=== PATIENT | female | born 1995 | race Caucasian/White ===

== ENCOUNTER 2024-02-20 10:31 | Emergency (ER) | payer OTHER, SELFPAY ==
[2024-02-20 10:42] VITALS: BP 112/71
--- NOTE | 2024-02-20 10:58 | ED.GENMED ---
History of Present Illness
General
Chief Complaint: Abdominal Symptoms
Time Seen by Provider: 02/20/24 10:46
Travel History
Have you had any contact with someone who has COVID-19?: No
Do you have any symptoms of coronavirus? Fever > 100 degrees, chills, cough, shortness of breath, sore throat, loss of taste or smell, muscle aches, or headache?: No
History of Present Illness
History of Present Illness:
28-year-old female with history of PCOS presents to the emergency department for evaluation of right lower quadrant/right pelvic pain ongoing for the past 3 days. Associated with nausea no vomiting. Denies any appetite changes. No fevers or
chills. Has a history of multiple ruptured ovarian cyst, states this feels different. Past menstrual cycle was approximate 2 weeks ago
Past History
Past History
ED Past Medical History: Other (ADHD, chronic sinusitis)
ED Past Surgical History: None
Social History
Tobacco: Non-smoker
Alcohol: None
Drug: None
Personal: Single
Living: with family
Employment: Student
Family History
Family History: Other (Noncontributory)
Review of Systems
Review of Systems
Allergies reviewed?: Yes
All Other Systems: ROS reviewed and negative except as documented in HPI and ROS
Phy Exam
Physical Exam
Physical Exam:
GEN: Well appearing, NAD, WDWN
HEENT: Oral mucosa moist, no scleral icterus
Cardiac: Regular rate
Lung: No respiratory distress, no tachypnea
Abdomen: Soft, nontender in all 4 quadrants. There is mild tenderness elicited to the right pelvis
MSK: No gross deformity or injuries
Skin: Good color, no pallor or jaundice, no rashes
Neuro: AO x3, moves all extremities freely
Psych: Calm, cooperative
Course
Orders/Labs/Results
Orders:
Orders
02/20/24 10:56
Iohexol [Omnipaque] See Protocol PO NOW STA
US Abdomen - Appendix Only Urgent
Comment:
Reason For Exam: R pelvic/RLQ pain
US Pelvis W Transvag Combined Urgent
Reason For Exam: R pelvic pain
02/20/24 10:57
Test Result ONCE
02/20/24 11:40
Complete Blood Count/With Diff Urgent
Comprehensive Metabolic Panel Urgent
HCG, Serum Qualitative Screen Urgent
Urinalysis Reflex To Culture Urgent
Date Specimen was Collected: 02/20/24
Time Specimen was Collected: 11:26
Urine Microscopic Urgent
Date Specimen was Collected: 02/20/24
Time Specimen was Collected: 11:26
Urine Culture Urgent
ROSINA Source: U
Specimen Description:
Date Specimen was Collected: 02/20/24
Time Specimen was Collected: 11:26
Abnormal Lab Results
02/20/24
11:40
Absolute Neuts (auto) 8.2 H 10^3/uL
(1.4-6.5)
Absolute Lymphs (auto) 0.5 L 10^3/uL
(1.2-3.4)
Neutrophils % 88.6 H %
(42.2-75.2)
Lymphocytes % 4.9 L %
(20.5-51.1)
Sodium 134 L mmol/L
(135-145)
BUN 23 H mg/dl
(7-17)
Leukocyte Esterase Rfl 1+ A
(Negative)
Urine Bacteria Few A
(Negative)
02/20/24 11:40
02/20/24 11:40
Vital Signs
Initial and Last Documented VS:
Initial Vital Signs
Temp Pulse Resp BP Pulse Ox
98.0 F 79 16 112/71 98
02/20/24 10:42 02/20/24 10:42 02/20/24 10:42 02/20/24 10:42 02/20/24 10:42
Last Documented Vital Signs
Temp Pulse Resp BP Pulse Ox
98.0 F 79 16 112/71 98
02/20/24 10:42 02/20/24 10:42 02/20/24 10:42 02/20/24 10:42 02/20/24 10:42
MDM/Problems Addressed
MDM/Problems Addressed:
Workup reveals a large 6 cm ovarian cyst that is likely somewhat hemorrhagic. No evidence for ovarian torsion. No free fluid or secondary signs of appendicitis. The ovarian cyst is most likely the cause of her symptoms. I strongly recommend she
follow-up for repeat ultrasound in the next 6 to 12 weeks due to the sheer size of the cyst to rule out any occult neoplastic etiology
*Critical Care Note
Total Time (30-74mins, 75-104mins- exclusive of procedures): Not Applicable
ED Attending Note
-
Portions of this chart may have been created with voice recognition software.� Occasional wrong word or��sound alike� substitutions may have occurred due to the inherent limitations of voice recognition software.
Discharge Plan
Departure
Patient Disposition: Home (Routine Discharge)
Date of Disposition: 02/20/24
Time of Disposition: 13:34
Patient with high blood pressure during this ER visit?: No
Discharge Problem:
Cyst of right ovary
Instructions: Ovarian Cyst ED
Prescriptions:
No Action
celecoxib 200 mg capsule
200 mg PO DAILYPRN PRN (Reason: mild pain)
sucralfate [Carafate] 1 gram Tablet
1 g PO TID
tramadol 50 mg tablet
50 mg PO Q6HPRN PRN (Reason: moderate pains)
escitalopram oxalate [Lexapro] 5 mg Tablet
5 mg PO DAILY
cephalexin 500 mg Capsule
500 mg PO QID Qty: 40 0RF
Santyl 250 unit/gram Ointment
1 applic topical DAILY Qty: 30 0RF
Referrals:
Cecile Soto CRNP [Family Provider] -
Activity Restrictions/Additional Instructions:
Get a repeat ultrasound in 6-12 weeks to reassess the cyst due to size
Interventions
Interventions:
*Risk Screen - Suicide Last Done: 02/20/24 11:43
*General Assessment Last Done: 02/20/24 11:43
*Neglect/Abuse Screening Last Done: 02/20/24 11:43
ED- Fall Risk Assessment Last Done: 02/20/24 13:30
*ED COVID-19 Vaccine History Last Done: 02/20/24 10:42
*Nursing Disposition Last Done: 02/20/24 13:30
SE-Jtvawp-Aiwgccbkza Assessment Last Done: 02/20/24 11:43
Discharge Date and Time
Discharge Date/Time: 02/20/24 13:30
Print Language: LATVIAN
[2024-02-20] MEDS: OMNIPAQUE 50 ML PO (11:30)
[2024-02-20 11:58] LABS: % Basophils 0.2 % (0-2); % Eosinophils 0.1 % (0-6); % Immature Granulocytes 0.3 % (0-0.5); % Lymphocytes 4.9 % (20.5-51.1); % Monocytes 5.9 % (1.7-9.3); % Neutrophils 88.6 % (42.2-75.2); Absolute Lymphocytes 0.5 10^3/uL (1.2-3.4); Absolute Monocytes 0.6 10^3/uL (0.1-0.6); Absolute Neutrophils 8.2 10^3/uL (1.4-6.5); Hematocrit 42.4 % (37.0-47.0); Hemoglobin 14.4 g/dL (12.0-16.0); Mean Corpuscular Hgb 29.3 pg (27.0-31.0); Mean Corpuscular Volume 86.2 fL (81.0-99.0); Mean Platelet Volume 8.9 fL (7.4-10.4); Nucleated Red Blood Cells % 0 %; Platelet Count 176 10^3/uL (130-400); Red Blood Cell Count 4.92 10^6/uL (4.20-5.40); Red Cell Dist. Width 12.1 % (11.5-14.5); White Blood Cell Count 9.3 10^3/uL (4.8-10.8)
[2024-02-20 12:06] LABS: HCG, Serum Qualitative Screen Negative; Urine Albumin Negative (Neg - Trace); Urine Bilirubin Negative (Negative); Urine Color Yellow; Urine Glucose Negative (Negative); Urine Ketone Negative (Negative); Urine Leukocyte 1+ (Negative); Urine Nitrite Negative (Negative); Urine Occult Blood Negative (Negative); Urine Urobilinogen Negative (Neg - 1+)
[2024-02-20 12:09] LABS: ALT (SGPT) 28 U/L (0-35); AST (SGOT) 30 U/L (14-36); Albumin 4.5 g/dl (3.5-5.0); Alkaline Phosphatase 63 U/L (38-126); Blood Urea Nitrogen 23 mg/dl (7-17); Calcium 9.4 mg/dl (8.4-10.2); Carbon Dioxide 25 mmol/L (22-30); Chloride 102 mmol/L (98-107); Glucose 77 mg/dl (70-99); Potassium 4.1 mmol/L (3.5-5.1); Sodium 134 mmol/L (135-145); Total Bilirubin 0.5 mg/dl (0.2-1.3); Total Protein 7.4 g/dl (6.3-8.2); eGFR > 60.00
[2024-02-20 13:17] LABS: Urine Character Clear (Clear)
[2024-02-20 13:26] LABS: Urine Bacteria Few (Negative); Urine Red Blood Cell 0-2 /HPF (0-2)
== END 2024-02-20 13:30 | disposition home or self-care (01) ==
LOC: EMR 10:31
PROVIDERS: Physician Assistant; EMERGENCY PHYSICIAN Emergency Medicine; FAMILY PHYSICIAN Nurse Practitioner
DX: N83.201 Unspecified ovarian cyst, right side (principal)
CPT/HCPCS: 99284; 76700; 76705; 76830; 76856; 80053; 81003; 81015; 83690; 84703; 85025; 87086; 96361; 96374; 96375

== ENCOUNTER 2024-02-20 20:26 | Emergency (ER) | payer OTHER, SELFPAY ==
[2024-02-20 20:31] VITALS: BP 106/71
[2024-02-20 20:49] LABS: % Basophils 0.3 % (0-2); % Eosinophils 0.4 % (0-6); % Immature Granulocytes 0.4 % (0-0.5); % Lymphocytes 8.7 % (20.5-51.1); % Monocytes 9.5 % (1.7-9.3); % Neutrophils 80.7 % (42.2-75.2); Absolute Lymphocytes 0.7 10^3/uL (1.2-3.4); Absolute Monocytes 0.8 10^3/uL (0.1-0.6); Absolute Neutrophils 6.4 10^3/uL (1.4-6.5); Hematocrit 46.2 % (37.0-47.0); Hemoglobin 15.8 g/dL (12.0-16.0); Mean Corp Hgb Conc. 34.2 g/dL (33.0-37.0); Mean Corpuscular Hgb 29.2 pg (27.0-31.0); Mean Corpuscular Volume 85.4 fL (81.0-99.0); Mean Platelet Volume 9.1 fL (7.4-10.4); Nucleated Red Blood Cells % 0 %; Platelet Count 166 10^3/uL (130-400); Red Blood Cell Count 5.41 10^6/uL (4.20-5.40); Red Cell Dist. Width 12.2 % (11.5-14.5); White Blood Cell Count 7.9 10^3/uL (4.8-10.8)
[2024-02-20 21:02] LABS: HCG, Serum Qualitative Screen Negative
[2024-02-20 21:06] LABS: ALT (SGPT) 32 U/L (0-35); AST (SGOT) 36 U/L (14-36); Albumin 4.7 g/dl (3.5-5.0); Alkaline Phosphatase 71 U/L (38-126); Blood Urea Nitrogen 23 mg/dl (7-17); Calcium 9.7 mg/dl (8.4-10.2); Carbon Dioxide 29 mmol/L (22-30); Chloride 98 mmol/L (98-107); Glucose 80 mg/dl (70-99); Potassium 3.9 mmol/L (3.5-5.1); Sodium 136 mmol/L (135-145); Total Bilirubin 0.6 mg/dl (0.2-1.3); Total Protein 7.8 g/dl (6.3-8.2); eGFR > 60.00
[2024-02-20] MEDS: NSS 500 IV (21:21)
[2024-02-20] MEDS: TORADOL 15 MG IV (21:21)
[2024-02-20] MEDS: PROTONIX IV 40 MG IV (21:21)
[2024-02-20 21:22] LABS: Lipase 130 U/L (23-300)
--- NOTE | 2024-02-20 22:19 | PHANOTE ---
Med Rec Note:
Unable to confirm spironolactone, pharmacy is closed at time of interview. Med not shown in Dr Odell or [facility].
--- NOTE | 2024-02-20 23:14 | ED.GENMED ---
History of Present Illness
General
Chief Complaint: Abdominal Pain
Source: patient
Exam Limitations: none
Time Seen by Provider: 02/20/24 20:43
Nursing documentation reviewed up to this point in time: agreed with
Travel History
Have you had any contact with someone who has COVID-19?: No
Do you have any symptoms of coronavirus? Fever > 100 degrees, chills, cough, shortness of breath, sore throat, loss of taste or smell, muscle aches, or headache?: No
History of Present Illness
History of Present Illness:
Patient with history of PCOS and endometriosis, presents to ED secondary to left-sided abdominal pain associated with nausea sensation, along with diarrhea for the past 3 days. Denies fever or chills. Denies vomiting. Denies trauma. Denies
difficulty with urination. Patient's last menstrual cycle was 2 weeks ago. Patient was evaluated earlier in the ED with similar complaint, and was diagnosed with ovarian cyst. Since being discharged, patient states that her pain has worsened, but
at different location. Over the past 3 days, patient has noted early satiety, but denies loss of appetite.
Past History
Past History
ED Past Medical History: Other (ADHD, chronic sinusitis)
ED Past Surgical History: None
Social History
Tobacco: Non-smoker
Alcohol: None
Drug: None
Personal: Single
Living: with family
Employment: Student
Family History
Family History: Other (Noncontributory)
Review of Systems
Review of Systems
Allergies reviewed?: Yes
All Other Systems: ROS reviewed and negative except as documented in HPI and ROS
Constitutional: Reports no symptoms; Denies fever or chills
EENT: Reports no symptoms
Respiratory: Reports no symptoms
Cardiac: Reports no symptoms
ABD/GI: Reports abdominal pain, nausea and diarrhea; Denies vomiting
: Reports no symptoms
Musculoskeletal: Reports no symptoms
Skin: Reports no symptoms
Neurological: Reports no symptoms
Phy Exam
Physical Exam
Physical Exam:
Physical Exam
General: mild painful distress, not acutely ill. afebrile
Head: nc/at. eomi
Neck: supple. no meningeal signs. normal posterior pharynx
Abdomen: normal bowel sounds. mild RUQ/flank tenderness to palpation.
Neuro: alert and oriented. no focal neurological deficits
Skin: no rash
Psychiatric: well kept. interactive and cooperative
Extremities: no edema. no calf tenderness.
Course
Orders/Labs/Results
Orders:
Orders
02/20/24 20:42
Test Result ONCE
02/20/24 20:44
Complete Blood Count/With Diff Urgent
Comprehensive Metabolic Panel Urgent
HCG, Serum Qualitative Screen Urgent
Lipase Urgent
Comment: ADD ON
02/20/24 21:08
Ketorolac [Toradol] 15 mg IV NOW STA
US Abdomen Complete/Upper Urgent
Comment:
Reason For Exam: RUQ pain
02/20/24 21:09
Add On- LAB Urgent
Tests Added?: lipase
0.9% Sodium Chloride 500 ml [Nss] 500 ml IV BOLUS
Pantoprazole [Protonix IV] 40 mg IV NOW STA
02/20/24 23:13
Tramadol HCl [Ultram] 50 mg PO NOW STA
Abnormal Lab Results
02/20/24
20:44
RBC 5.41 H 10^6/uL
(4.20-5.40)
Absolute Lymphs (auto) 0.7 L 10^3/uL
(1.2-3.4)
Absolute Monos (auto) 0.8 H 10^3/uL
(0.1-0.6)
Neutrophils % 80.7 H %
(42.2-75.2)
Lymphocytes % 8.7 L %
(20.5-51.1)
Monocytes % 9.5 H %
(1.7-9.3)
BUN 23 H mg/dl
(7-17)
02/20/24 20:44
02/20/24 20:44
Vital Signs
Initial and Last Documented VS:
Initial Vital Signs
Temp Pulse Resp BP Pulse Ox
98.5 F 84 20 106/71 99
02/20/24 20:31 02/20/24 20:31 02/20/24 20:31 02/20/24 20:31 02/20/24 20:31
Last Documented Vital Signs
Temp Pulse Resp BP Pulse Ox
98.5 F 76 16 108/75 99
02/20/24 20:31 02/20/24 23:34 02/20/24 23:34 02/20/24 23:34 02/20/24 23:34
MDM/Problems Addressed
MDM/Problems Addressed:
Patient with unremarkable workup in ED, including blood work and abdominal ultrasound. Repeat abdominal exam: Soft and nontender. However, patient is still complaining of subjective abdominal discomfort. Patient presenting symptoms, especially
with 3-day history of early satiety and diarrhea, likely viral in nature along with ongoing ovarian cyst. Symptoms inconsistent with ovarian torsion at this time or an acute appendicitis. As such, it is reasonable to discharge home at this time,
with recommendation to rest, Tylenol/Motrin for pain relief, or prescribed tramadol with worsening pain, as well as close follow-up with her PCP or [facility] physician. Advised to return to ED with worsening symptoms, i.e. fever/worsening pain/vomiting.
Patient expresses understanding, at time of discharge to the care of her family.
*Critical Care Note
Total Time (30-74mins, 75-104mins- exclusive of procedures): Not Applicable
ED Attending Note
-
Portions of this chart may have been created with voice recognition software.� Occasional wrong word or��sound alike� substitutions may have occurred due to the inherent limitations of voice recognition software.
Discharge Plan
Departure
Patient Disposition: Home (Routine Discharge)
Date of Disposition: 02/20/24
Time of Disposition: 23:19
Patient with high blood pressure during this ER visit?: No
Condition: Good
Discharge Problem:
Abdominal pain
Instructions: Abdominal Pain
Prescriptions:
New
tramadol 50 mg tablet
50 mg PO Q8H PRN (Reason: Pain) Qty: 14 0RF
No Action
spironolactone 25 mg Tablet
75 mg PO DAILY
Patient Comments:
02/20/2024: Pharmacy closed at time of interview, med not on Dr Odell or [facility].
ascorbic acid (vitamin C) [Vitamin C] 500 mg Tablet
500 mg PO HS
fluoxetine 10 mg capsule
10 mg PO DAILY
Patient Comments:
02/20/2024: taken w/ 20mg = 30mg
fluoxetine 20 mg capsule
20 mg PO DAILY
Patient Comments:
02/20/2024: taken w/ 10mg = 30mg
dicyclomine 10 mg Capsule
10 mg PO QID PRN (Reason: abdominal cramps)
cholecalciferol (vitamin D3) [Vitamin D3] 25 mcg (1,000 unit) Tablet
50 mcg PO HS
Probiotic 20 billion cell Capsule
50,000 mmu cells PO HS
Serenol 500 mcg-12 mg- 312 mg Tablet
1 tab PO HS
ashwagandha extract 120 mg Capsule
120 mg PO HS
magnesium oxide 300 mg magnesium Tablet
300 mg PO HS
Referrals:
Cecile Soto CRNP [Family Provider] -
Stand Alone Forms: Return to Work
Activity Restrictions/Additional Instructions:
As discussed, please follow-up with your primary care physician and/or [facility] physician for further evaluation and treatment. Please return to ED with worsening symptoms, i.e. fever/worsening pain/vomiting. Your prescription has been sent
electronically to [facility] pharmacy in [place].
Interventions
Interventions:
*Risk Screen - Suicide Last Done: 02/20/24 20:31
*General Assessment Last Done: 02/20/24 20:31
*Neglect/Abuse Screening Last Done: 02/20/24 20:31
ED- Fall Risk Assessment Last Done: 02/20/24 20:31
*ED COVID-19 Vaccine History Last Done: 02/20/24 20:31
*Nursing Disposition Last Done: 02/20/24 23:34
QS-Zbkjky-Ljfraoyurb Assessment Last Done: 02/20/24 20:48
Discharge Date and Time
Discharge Date/Time: 02/20/24 23:35
Print Language: YI
[2024-02-20] MEDS: ULTRAM 50 MG PO (23:17)
[2024-02-20 23:34] VITALS: BP 108/75
== END 2024-02-20 23:35 | disposition home or self-care (01) ==
LOC: EMR 20:26
PROVIDERS: EMERGENCY PHYSICIAN Emergency Medicine; FAMILY PHYSICIAN Nurse Practitioner
DX: R10.9 Unspecified abdominal pain (principal); R19.7 Diarrhea, unspecified; R11.0 Nausea; N83.209 Unspecified ovarian cyst, unspecified side
CPT/HCPCS: 76700; 80053; 83690; 84703; 85025; 96361; 96374; 96375; 99284

== ENCOUNTER 2024-04-26 14:37 | Emergency (ER) | payer OTHER, SELFPAY ==
[2024-04-26 14:45] VITALS: BP 122/82
[2024-04-26] MEDS: NSS 1000 IV (15:34)
[2024-04-26] MEDS: ZOFRAN 4 MG IV (15:35)
[2024-04-26] MEDS: TORADOL 30 MG IV (15:35)
[2024-04-26] MEDS: OMNIPAQUE 50 ML PO (15:36)
[2024-04-26 15:45] LABS: % Basophils 0.2 % (0-2); % Eosinophils 0.4 % (0-6); % Immature Granulocytes 0.2 % (0-0.5); % Lymphocytes 14.9 % (20.5-51.1); % Monocytes 11.7 % (1.7-9.3); % Neutrophils 72.6 % (42.2-75.2); Absolute Lymphocytes 0.8 10^3/uL (1.2-3.4); Absolute Monocytes 0.6 10^3/uL (0.1-0.6); Hematocrit 43.1 % (37.0-47.0); Hemoglobin 14.5 g/dL (12.0-16.0); Mean Corp Hgb Conc. 33.6 g/dL (33.0-37.0); Mean Corpuscular Hgb 29.8 pg (27.0-31.0); Mean Corpuscular Volume 88.5 fL (81.0-99.0); Mean Platelet Volume 9.4 fL (7.4-10.4); Nucleated Red Blood Cells % 0 %; Platelet Count 154 10^3/uL (130-400); Red Blood Cell Count 4.87 10^6/uL (4.20-5.40); Red Cell Dist. Width 12.4 % (11.5-14.5); White Blood Cell Count 5.5 10^3/uL (4.8-10.8)
[2024-04-26 15:47] VITALS: BMI 26.2
--- NOTE | 2024-04-26 15:50 | ED.GENMED ---
History of Present Illness
General
Chief Complaint: Abdominal Pain
Source: patient
Time Seen by Provider: 04/26/24 14:45
Travel History
Have you had any contact with someone who has COVID-19?: No
Do you have any symptoms of coronavirus? Fever > 100 degrees, chills, cough, shortness of breath, sore throat, loss of taste or smell, muscle aches, or headache?: No
History of Present Illness
History of Present Illness:
28-year-old female presenting to the emergency department for evaluation of left upper quadrant abdominal pain that started last night gradually, 8 out of 10, associated with nausea vomiting diarrhea. Pain radiated towards her back. Symptoms
started to be a little bit improved this morning but then returned prompting her to the ER for further evaluation. 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
shortness of breath. She did take a Motrin and Tylenol around 8 AM but without any relief. Denies history of similar
Past History
Past History
ED Past Medical History: Asthma, Psychiatric and Other (ADHD, chronic sinusitis)
ED Past Surgical History: Orthopedic
Social History
Tobacco: Non-smoker
Alcohol: None
Drug: None
Personal: Single
Living: with family
Employment: Student
Family History
Family History: Other (Noncontributory)
Review of Systems
Review of Systems
All Other Systems: ROS reviewed and negative except as documented in HPI and ROS
Phy Exam
Physical Exam
Physical Exam:
GENERAL: Alert , in no apparent distress
EYE: clear conjunctiva b/l
HEAD: NCAT
ENT: mmm.
CARDIAC: Regular rate and rhythm .
LUNGS: Clear breath sounds bilaterally, no acute respiratory distress, no wheezes/rales/rhonchi
ABDOMEN: Soft, without focal tenderness, no r/g, no cvat
NEUROLOGICAL: Alert and oriented
SKIN: Warm and dry, skin intact.
MUSCULOSKELETAL: No edema, well perfused.
PSYCH: Normal and appropriate interaction.
Scores
Heart Failure Risk
Heart Failure Risk Score: Not Applicable
Heart Score for Chest Pain Patients
STEMI patient?: Not applicable
Withdrawal Assessment of Alcohol
Withdrawal Assessment Completed?: Not applicable
Course
Orders/Labs/Results
Orders:
Orders
04/26/24 15:02
0.9% Sodium Chloride 1000 ml [Nss] 1,000 ml IV BOLUS
Iohexol [Omnipaque] See Protocol PO NOW STA
Ketorolac [Toradol] 30 mg IV NOW STA
Ondansetron Injectable [Zofran] 4 mg IV NOW STA
04/26/24 15:03
CT Abd/pel W Iv And Oral Contr Urgent
Comment:
Reason For Exam: LUQ abd pain, N/V/D
Test Result ONCE
04/26/24 15:39
Complete Blood Count/With Diff Urgent
Comprehensive Metabolic Panel Urgent
HCG, Serum Qualitative Screen Urgent
Lipase Urgent
Urinalysis Reflex To Culture Urgent
Date Specimen was Collected: 04/26/24
Time Specimen was Collected: 15:30
Urine Microscopic Reflex Cult Urgent
04/26/24 17:14
Morphine Sulfate 4 mg IV NOW STA
Abnormal Lab Results
04/26/24
15:39
Absolute Lymphs (auto) 0.8 L 10^3/uL
(1.2-3.4)
Lymphocytes % 14.9 L %
(20.5-51.1)
Monocytes % 11.7 H %
(1.7-9.3)
BUN 19 H mg/dl
(7-17)
AST 37 H U/L
(14-36)
ALT 40 H U/L
(0-35)
Urine Ketones Trace A
(Negative)
Urine Bilirubin 1+ A
(Negative)
Leukocyte Esterase Rfl Trace A
(Negative)
Urine Bacteria (Reflex) Few A
(Negative)
04/26/24 15:39
04/26/24 15:39
Vital Signs
Initial and Last Documented VS:
Initial Vital Signs
Temp Pulse Resp BP Pulse Ox
98.6 F 74 18 122/82 98
04/26/24 14:45 04/26/24 14:45 04/26/24 14:45 04/26/24 14:45 04/26/24 14:45
Last Documented Vital Signs
Temp Pulse Resp BP Pulse Ox
98.6 F 83 19 97/62 97
04/26/24 14:45 04/26/24 19:04 04/26/24 19:04 04/26/24 19:00 04/26/24 19:45
MDM/Problems Addressed
Differential Diagnosis Includes:
Gastroenteritis, GERD/gastritis, pancreatitis, less concern for an acute surgical abdomen
MDM/Problems Addressed:
28-year-old female presenting the emergency department for evaluation of nausea vomiting and diarrhea as well as abdominal discomfort. Patient's abdominal exam is reassuring without any focal tenderness. She is hemodynamically stable. Will check
labs and CT imaging. Toradol and Zofran as well as IV fluids ordered for symptomatic control. Reassessment following
*Radiology
Radiology exam reviewed: radiology read reviewed
*Pulse Oximetry
Patient hypoxic: no
*Critical Care Note
Total Time (30-74mins, 75-104mins- exclusive of procedures): Not Applicable
Comment
Comment:
5:10 PM: Patient reports continued pain despite initial medications. 4 mg morphine ordered for pain control.
Patient Management
Escalation/DeEscalation of care consider admission/obs:
Patient CT scan shows questionable early enteritis. No acute surgical pathology is identified. Urinalysis does show trace leukocytes however there are significant squamous cells likely signifying contamination. Very mild AST and ALT elevation is
likely reactive from vomiting and diarrhea. Patient provided with prescription for Zofran to be discharged home with. Aware of return precautions to the emergency department. Otherwise stable for discharge home.
ED Attending Note
-
Portions of this chart may have been created with voice recognition software.� Occasional wrong word or��sound alike� substitutions may have occurred due to the inherent limitations of voice recognition software.
Discharge Plan
Departure
Patient Disposition: Home (Routine Discharge)
Date of Disposition: 04/26/24
Time of Disposition: 19:35
Patient with high blood pressure during this ER visit?: No
Discharge Problem:
Nausea and vomiting, Diarrhea
Instructions: Nausea and Vomiting, Adult (DC)
Prescriptions:
New
ondansetron 4 mg Tablet,Disintegrating
4 mg PO TIDPRN PRN (Reason: nausea/vomiting) Qty: 8 0RF
No Action
spironolactone 25 mg Tablet
75 mg PO DAILY
Patient Comments:
02/20/2024: Pharmacy closed at time of interview, med not on Dr Odell or [facility].
ascorbic acid (vitamin C) [Vitamin C] 500 mg Tablet
500 mg PO HS
fluoxetine 10 mg capsule
10 mg PO DAILY
Patient Comments:
02/20/2024: taken w/ 20mg = 30mg
fluoxetine 20 mg capsule
20 mg PO DAILY
Patient Comments:
02/20/2024: taken w/ 10mg = 30mg
dicyclomine 10 mg Capsule
10 mg PO QID PRN (Reason: abdominal cramps)
cholecalciferol (vitamin D3) [Vitamin D3] 25 mcg (1,000 unit) Tablet
50 mcg PO HS
Probiotic 20 billion cell Capsule
50,000 mmu cells PO HS
Serenol 500 mcg-12 mg- 312 mg Tablet
1 tab PO HS
ashwagandha extract 120 mg Capsule
120 mg PO HS
magnesium oxide 300 mg magnesium Tablet
300 mg PO HS
tramadol 50 mg tablet
50 mg PO Q8H PRN (Reason: Pain) Qty: 14 0RF
Referrals:
Cecile Soto CRNP [Family Provider] -
Stand Alone Forms: Return to Work
Interventions
Interventions:
*Risk Screen - Suicide Last Done: 04/26/24 15:56
*General Assessment Last Done: 04/26/24 15:56
*Neglect/Abuse Screening Last Done: 04/26/24 15:56
ED- Fall Risk Assessment Last Done: 04/26/24 15:56
*ED COVID-19 Vaccine History Last Done: 04/26/24 15:56
*Nursing Disposition Last Done: 04/26/24 19:54
EZ-Hitjsl-Oepogpqwbz Assessment Last Done: 04/26/24 15:56
Discharge Date and Time
Discharge Date/Time: 04/26/24 19:55
Print Language: LATVIAN
[2024-04-26 15:59] LABS: Urine Albumin Trace (Neg - Trace); Urine Bilirubin 1+ (Negative); Urine Character Clear (Clear); Urine Color Amber; Urine Glucose Negative (Negative); Urine Ketone Trace (Negative); Urine Leukocyte Trace (Negative); Urine Nitrite Negative (Negative); Urine Occult Blood Negative (Negative); Urine Urobilinogen Negative (Neg - 1+)
[2024-04-26 16:00] VITALS: BP 114/78
[2024-04-26 16:02] LABS: HCG, Serum Qualitative Screen Negative
[2024-04-26 16:07] LABS: ALT (SGPT) 40 U/L (0-35); AST (SGOT) 37 U/L (14-36); Albumin 4.1 g/dl (3.5-5.0); Alkaline Phosphatase 63 U/L (38-126); Blood Urea Nitrogen 19 mg/dl (7-17); Calcium 9.5 mg/dl (8.4-10.2); Carbon Dioxide 25 mmol/L (22-30); Chloride 106 mmol/L (98-107); Estimated Creatinine Clearance 95 ml/min; Glucose 77 mg/dl (70-99); Lipase 142 U/L (23-300); Potassium 3.7 mmol/L (3.5-5.1); Sodium 139 mmol/L (135-145); Total Bilirubin 0.5 mg/dl (0.2-1.3); Total Protein 7.1 g/dl (6.3-8.2); eGFR > 60.00
[2024-04-26 16:27] LABS: Urine Squamous Cell 26-30 /LPF (Few)
[2024-04-26 16:29] LABS: Urine Red Blood Cell 0-2 /HPF (0-2)
[2024-04-26 16:30] LABS: Urine Bacteria Few (Negative)
[2024-04-26 17:00] VITALS: BP 111/80
[2024-04-26] MEDS: MORPHINE SULFATE 4 MG IV (17:21)
[2024-04-26 18:58] VITALS: BP 97/62
[2024-04-26 19:00] VITALS: BP 97/62
== END 2024-04-26 19:55 | disposition home or self-care (01) ==
LOC: EMR 14:37
PROVIDERS: Physician Assistant Medical; EMERGENCY PHYSICIAN Emergency Medicine; FAMILY PHYSICIAN Nurse Practitioner
DX: R11.2 Nausea with vomiting, unspecified (principal); R19.7 Diarrhea, unspecified; R10.12 Left upper quadrant pain; F90.9 Attention-deficit hyperactivity disorder, unspecified type; J45.909 Unspecified asthma, uncomplicated; Z88.1 Allergy status to other antibiotic agents; Z88.5 Allergy status to narcotic agent; Z91.018 Allergy to other foods; Z91.010 Allergy to peanuts; Z91.048 Other nonmedicinal substance allergy status
CPT/HCPCS: 99285; 96375 ×2; 96361; 96374; 74177; 80053; 81003; 81015; 83690; 84703; 85025; Q9967

== ENCOUNTER 2024-04-27 15:49 | Emergency (ER) | payer OTHER, SELFPAY ==
[2024-04-27 15:51] VITALS: BP 123/78
[2024-04-27 15:55] VITALS: BMI 27.0
[2024-04-27] MEDS: MORPHINE SULFATE 4 MG IV (16:42)
[2024-04-27 16:59] LABS: % Basophils 0.2 % (0-2); % Eosinophils 0.7 % (0-6); % Immature Granulocytes 0.2 % (0-0.5); % Lymphocytes 16.7 % (20.5-51.1); % Monocytes 10.9 % (1.7-9.3); % Neutrophils 71.3 % (42.2-75.2); Absolute Monocytes 0.6 10^3/uL (0.1-0.6); Absolute Neutrophils 4.2 10^3/uL (1.4-6.5); Hematocrit 41.3 % (37.0-47.0); Hemoglobin 14.2 g/dL (12.0-16.0); Mean Corp Hgb Conc. 34.4 g/dL (33.0-37.0); Mean Corpuscular Hgb 29.4 pg (27.0-31.0); Mean Corpuscular Volume 85.5 fL (81.0-99.0); Mean Platelet Volume 9.1 fL (7.4-10.4); Nucleated Red Blood Cells % 0 %; Platelet Count 149 10^3/uL (130-400); Red Blood Cell Count 4.83 10^6/uL (4.20-5.40); Red Cell Dist. Width 12.4 % (11.5-14.5); White Blood Cell Count 5.9 10^3/uL (4.8-10.8)
[2024-04-27 17:03] LABS: Urine Albumin Negative (Neg - Trace); Urine Bilirubin Negative (Negative); Urine Color Yellow; Urine Glucose Negative (Negative); Urine Ketone Negative (Negative); Urine Leukocyte Trace (Negative); Urine Nitrite Negative (Negative); Urine Occult Blood Negative (Negative); Urine Specific Gravity 1.015 (<1.030); Urine Urobilinogen Negative (Neg - 1+)
[2024-04-27 17:08] LABS: HCG, Serum Qualitative Screen Negative
--- NOTE | 2024-04-27 17:09 | ED.GENMED ---
History of Present Illness
General
Chief Complaint: Abdominal Pain
Source: patient
Exam Limitations: none
Time Seen by Provider: 04/27/24 16:15
Nursing documentation reviewed up to this point in time: agreed with
Travel History
Have you had any contact with someone who has COVID-19?: No
Do you have any symptoms of coronavirus? Fever > 100 degrees, chills, cough, shortness of breath, sore throat, loss of taste or smell, muscle aches, or headache?: No
History of Present Illness
History of Present Illness:
28-year-old female with past medical history of asthma, irritable bowel syndrome, endometriosis, polycystic ovarian syndrome who presents to the emergency department for evaluation of abdominal pain. Patient reports onset of symptoms Saturday and
they have been constant and generally worsening since that time. She reports pain primarily in the left upper abdomen sharp and intense wraps around to the left flank. She says that Saturday she did have some diarrhea but has not had diarrhea
since. She did try some Tums on Saturday and had an episode of vomiting subsequently but has not vomited since. Was seen in the emergency room last night for the symptoms at that time she had blood work which was largely unremarkable and a CT of
the abdomen pelvis which showed questionable enteritis but no other acute intra-abdominal pathology. She was treated symptomatically and she says she had some improvement with symptomatic treatment and was discharged home with supportive care. She
has been taking Tylenol and Motrin for pain since but says that pain has generally worsened since then. She also reports that this morning she had a fever with a temperature of 101 �F. Given worsening symptoms and now fever she returned to the
emergency room for reassessment. She has not had any dysuria, hematuria, change in urinary frequency. She denies any vaginal bleeding, says last menstrual period was about 2 weeks ago and was a little bit heavier than usual. Only other complaint
on review of systems is mild headache. Denies any other complaints. She denies any prior surgical history.
Past History
Past History
ED Past Medical History: Asthma, Psychiatric and Other (ADHD, chronic sinusitis)
ED Past Surgical History: Orthopedic
Social History
Tobacco: Non-smoker
Alcohol: None
Drug: None
Personal: Single
Living: with family
Employment: Student
Family History
Family History: Other (Noncontributory)
Review of Systems
Review of Systems
All Other Systems: ROS reviewed and negative except as documented in HPI and ROS
Constitutional: Reports fever and chills
EENT: Denies sore throat or runny nose
Respiratory: Denies cough or trouble breathing
Cardiac: Denies chest pain
ABD/GI: Reports abdominal pain, nausea, vomiting (1 episode on Saturday) and diarrhea (1 episode on Saturday)
: Reports flank pain; Denies dysuria, frequency or bleeding
Neurological: Reports headache; Denies dizzy
Phy Exam
Physical Exam
Physical Exam:
General: Awake, alert, oriented x3; no acute distress
Head: Normocephalic, atraumatic
Eyes: Conjunctiva normal, sclera anicteric
Throat: Airway intact
Neck: Moving comfortably
Lungs: Clear to auscultation bilaterally, no wheezing, rales, rhonchi
Heart: Regular rate and rhythm, no murmurs, gallops, or rubs
Abd: Soft, non distended, mildly tender left upper and left lower abdomen with no peritoneal signs and no palpable abdominal masses
Back: No CVA tenderness
Neuro: No gross deficits
Skin: no rash
Extremities: Moves all extremities equally
Scores
Heart Failure Risk
Heart Failure Risk Score: Not Applicable
Heart Score for Chest Pain Patients
STEMI patient?: Not applicable
Withdrawal Assessment of Alcohol
Withdrawal Assessment Completed?: Not applicable
Course
Orders/Labs/Results
Orders:
Orders
04/27/24 16:26
Morphine Sulfate 4 mg IV NOW STA
US Pelvis W Transvag Combined Urgent
Comment:
Reason For Exam: left abd pain
04/27/24 16:27
Test Result ONCE
04/27/24 16:41
Complete Blood Count/With Diff Urgent
Comprehensive Metabolic Panel Urgent
HCG, Serum Qualitative Screen Urgent
Lipase Urgent
Monotest Urgent
Urinalysis Reflex To Culture Urgent
Date Specimen was Collected: 04/27/24
Time Specimen was Collected: 16:36
Urine Microscopic Reflex Cult Urgent
Abnormal Lab Results
04/27/24
16:41
Absolute Lymphs (auto) 1.0 L 10^3/uL
(1.2-3.4)
Lymphocytes % 16.7 L %
(20.5-51.1)
Monocytes % 10.9 H %
(1.7-9.3)
BUN 18 H mg/dl
(7-17)
ALT 39 H U/L
(0-35)
Leukocyte Esterase Rfl Trace A
(Negative)
04/27/24 16:41
04/27/24 16:41
Vital Signs
Initial and Last Documented VS:
Initial Vital Signs
Temp Pulse Resp BP Pulse Ox
36.9 C 71 18 123/78 98
04/27/24 15:51 04/27/24 15:51 04/27/24 15:51 04/27/24 15:51 04/27/24 15:51
Last Documented Vital Signs
Temp Pulse Resp BP Pulse Ox
36.9 C 67 18 106/67 98
04/27/24 15:51 04/27/24 18:10 04/27/24 18:10 04/27/24 18:10 04/27/24 18:10
MDM/Problems Addressed
Differential Diagnosis Includes:
Enteritis, gastritis, constipation, UTI/pyelonephritis, endometriosis, ovarian cyst or torsion considered less likely clinically
MDM/Problems Addressed:
28-year-old female returns to the emergency room for worsening abdominal pain�was seen yesterday and had workup which showed questionable enteritis on CT but was otherwise unremarkable. She says she had fever today and felt symptoms were worsening
so she returned to the emergency room for reassessment. Vital signs are normal. Physical exam as above. Will check labs including CBC and CMP, lipase. Check an hCG. Check urinalysis. Check mono swab although no palpable splenomegaly and no
splenomegaly on CT yesterday. Will send for pelvic ultrasound to rule out ovarian pathology. At this point I do not see any clear indication for repeat CT scan�while she reports subjective worsening of pain she is minimally tender and has
reassuring vitals here.
Labs reviewed: CBC unremarkable, CMP no clinically significant abnormalities. She has a marginal elevation of her ALT which is improving. Her hCG is negative. Her urinalysis is negative. Her Monospot is negative. We are awaiting results of her
ultrasound. I suspect she likely has a viral gastroenteritis.
Ultrasound shows complex right ovarian cyst with no pathology on the left side where patient is having symptoms. Suspect likely viral gastroenteritis but with worsening symptoms not unreasonable to cover with antibiotics. Discussed with patient and
offered admission for symptom control versus discharge with supportive care. She prefers discharge home. Follow-up with PCP as an outpatient. We spoke about return precautions all questions answered.
*Radiology
Radiology exam reviewed: radiology read reviewed
*Pulse Oximetry
Patient hypoxic: no
*Critical Care Note
Total Time (30-74mins, 75-104mins- exclusive of procedures): Not Applicable
Data Reviewed
Review of Other/Old Records Reveals: Labs and Records
Source: patient, records and family (Mother)
Further Testing Considered But Not Given:
Considered repeat CT scan but with reassuring labs and vitals and previous CT scan less than 24 hours ago no indication for emergent repeat study
ED Attending Note
-
Portions of this chart may have been created with voice recognition software.� Occasional wrong word or��sound alike� substitutions may have occurred due to the inherent limitations of voice recognition software.
Discharge Plan
Departure
Patient Disposition: Home (Routine Discharge)
Date of Disposition: 04/27/24
Time of Disposition: 19:46
Patient with high blood pressure during this ER visit?: No
Discharge Problem:
Abdominal pain, Enteritis
Instructions: Viral gastroenteritis in adults, Abdominal Pain
Prescriptions:
New
amoxicillin-pot clavulanate 875-125 mg tablet
1 tab PO BID Qty: 14 0RF
No Action
spironolactone 25 mg Tablet
75 mg PO DAILY
Patient Comments:
02/20/2024: Pharmacy closed at time of interview, med not on Dr Odell or [facility].
ascorbic acid (vitamin C) [Vitamin C] 500 mg Tablet
500 mg PO HS
fluoxetine 10 mg capsule
10 mg PO DAILY
Patient Comments:
02/20/2024: taken w/ 20mg = 30mg
fluoxetine 20 mg capsule
20 mg PO DAILY
Patient Comments:
02/20/2024: taken w/ 10mg = 30mg
dicyclomine 10 mg Capsule
10 mg PO QID PRN (Reason: abdominal cramps)
cholecalciferol (vitamin D3) [Vitamin D3] 25 mcg (1,000 unit) Tablet
50 mcg PO HS
Probiotic 20 billion cell Capsule
50,000 mmu cells PO HS
Serenol 500 mcg-12 mg- 312 mg Tablet
1 tab PO HS
ashwagandha extract 120 mg Capsule
120 mg PO HS
magnesium oxide 300 mg magnesium Tablet
300 mg PO HS
tramadol 50 mg tablet
50 mg PO Q8H PRN (Reason: Pain) Qty: 14 0RF
ondansetron 4 mg Tablet,Disintegrating
4 mg PO TIDPRN PRN (Reason: nausea/vomiting) Qty: 8 0RF
Referrals:
UNKNOWN - PT DOES,NOT KNOW [Family Provider] -
Activity Restrictions/Additional Instructions:
Thank you for visiting the Emergency Department at [facility].
1. Please schedule a follow up appointment as directed. Call first thing tomorrow morning to make an appointment.
2. If indicated, please take your medications as instructed and indicated on discharge paperwork.
3. If any of your symptoms do not improve, or persist, or become more severe within 6-12 hours, please return to the emergency department for further care.
4. Please return to the emergency department if you develop a headache, neck pain/stiffness, fever greater than 100.4F, chest pain, shortness of breath, persistent nausea, vomiting, slurred speech, difficulty walking, numbness/tingling, weakness,
signs of infection or any other symptoms that are worrisome to you.
Please call [phone] if you have any questions.
Interventions
Interventions:
*Risk Screen - Suicide Last Done: 04/27/24 16:01
*General Assessment Last Done: 04/27/24 16:01
*Neglect/Abuse Screening Last Done: 04/27/24 16:01
ED- Fall Risk Assessment Last Done: 04/27/24 16:27
*ED COVID-19 Vaccine History Last Done: 04/27/24 15:56
MK-Ouuxox-Gdabeagufz Assessment Last Done: 04/27/24 16:26
Discharge Date and Time
Print Language: KOSOVAN
[2024-04-27 17:12] LABS: ALT (SGPT) 39 U/L (0-35); AST (SGOT) 35 U/L (14-36); Albumin 3.7 g/dl (3.5-5.0); Alkaline Phosphatase 69 U/L (38-126); Blood Urea Nitrogen 18 mg/dl (7-17); Calcium 8.7 mg/dl (8.4-10.2); Carbon Dioxide 25 mmol/L (22-30); Chloride 106 mmol/L (98-107); Estimated Creatinine Clearance 108 ml/min; Glucose 86 mg/dl (70-99); Lipase 126 U/L (23-300); Potassium 3.9 mmol/L (3.5-5.1); Sodium 137 mmol/L (135-145); Total Bilirubin 0.3 mg/dl (0.2-1.3); Total Protein 6.5 g/dl (6.3-8.2); eGFR > 60.00
[2024-04-27 17:16] LABS: Monotest Negative (Negative)
[2024-04-27 18:10] VITALS: BP 106/67
[2024-04-27 18:31] LABS: Urine Red Blood Cell 0-2 /HPF (0-2)
[2024-04-27 18:32] LABS: Urine Character Clear (Clear); Urine Squamous Cell 0-2 /LPF (Few)
== END 2024-04-27 20:00 | disposition home or self-care (01) ==
LOC: EMR 15:49
PROVIDERS: EMERGENCY PHYSICIAN Emergency Medicine
DX: R10.9 Unspecified abdominal pain (principal); K52.9 Noninfective gastroenteritis and colitis, unspecified; J45.909 Unspecified asthma, uncomplicated; E28.2 Polycystic ovarian syndrome
CPT/HCPCS: 99284; 96374; 76830; 76856; 80053; 81003; 81015; 83690; 84703; 85025; 86308

== ENCOUNTER 2024-04-28 09:22 | Emergency (ER) | payer OTHER, SELFPAY ==
[2024-04-28 09:25] VITALS: BP 124/81
--- NOTE | 2024-04-28 09:43 | ED.GENMED ---
History of Present Illness
General
Chief Complaint: Abdominal Pain
Source: patient and records
Exam Limitations: none
Time Seen by Provider: 04/28/24 09:30
Nursing documentation reviewed up to this point in time: agreed with
Travel History
Have you had any contact with someone who has COVID-19?: No
Do you have any symptoms of coronavirus? Fever > 100 degrees, chills, cough, shortness of breath, sore throat, loss of taste or smell, muscle aches, or headache?: No
History of Present Illness
History of Present Illness:
Patient is a 28-year-old female presents to the emergency department complaining of left-sided abdominal pain with nausea but no vomiting. Patient's had fever and chills. This started and got progressively worse 3 days ago. Patient shortly after
the pain had an IBS attack but no diarrhea or constipation since. Patient's nauseous and had 1 episode of vomiting but none since. Patient has been seen in the emergency department repeated lab work done as well as ultrasound and scan. Both of
which were unremarkable except for an ovarian cyst on the right.
Past History
Past History
ED Past Medical History: Asthma, Psychiatric and Other (ADHD, chronic sinusitis)
ED Past Surgical History: Orthopedic
Social History
Tobacco: Non-smoker
Alcohol: None
Drug: None
Personal: Single
Living: with family
Employment: Student
Family History
Family History: Other (Noncontributory)
Review of Systems
Review of Systems
All Other Systems: ROS reviewed and negative except as documented in HPI and ROS
Constitutional: Reports fever, fatigue and chills
EENT: Reports no symptoms
Respiratory: Reports no symptoms
Cardiac: Reports no symptoms
ABD/GI: Reports abdominal pain, nausea and anorexia; Denies vomiting, bloody stools or black stools
: Reports no symptoms
Musculoskeletal: Denies back pain
Skin: Reports no symptoms
Neurological: Reports no symptoms
Hematologic/Lymphatic: Reports no symptoms
Phy Exam
Physical Exam
Physical Exam:
Physical Exam
General: moderate distress, alert and appropriate, well nourished, well hydrated
HENT: Normocephalic, supple with no lymphadenopathy, no thyromegaly
Eyes: Clear sclera, conjuctiva without injection
Heart: Regular rhythm and rate. No S3, S4. No murmur.
Lungs: No respiratory distress, no stridor, lung sounds clear and equal bilaterally
Abdomen: Soft, mild left upper quadrant tenderness without guarding or rebound, no organomegaly, mild right CVA tenderness, BS good
Neuro: Alert and oriented x 3, CN II - XII intact, no motor focality, no cerebellar dysfunction
Skin: no rash
Psychiatric: well kept. interactive and cooperative
Extremities: No edema, cyanosis, tenderness, Good and equal peripheral pulses.
Course
Orders/Labs/Results
Orders:
Orders
04/28/24 09:40
0.9% Sodium Chloride 1000 ml [Nss] 1,000 ml IV BOLUS
Ketorolac [Toradol] 15 mg IV NOW STA
Ondansetron Injectable [Zofran] 4 mg IV NOW STA
04/28/24 10:10
Complete Blood Count/With Diff Urgent
Comprehensive Metabolic Panel Urgent
04/28/24 10:21
US Abdomen Complete/Upper Urgent
Comment:
Reason For Exam: LUQ tender
04/28/24 11:52
Urinalysis Reflex To Culture Urgent
Date Specimen was Collected: 04/28/24
Time Specimen was Collected: 11:49
04/28/24 12:21
Ketorolac [Toradol] 15 mg IV NOW STA
Pantoprazole [Protonix IV] 80 mg IV NOW STA
Sucralfate [Carafate] 1 gram PO NOW STA
Abnormal Lab Results
04/28/24
10:10
Absolute Lymphs (auto) 0.7 L 10^3/uL
(1.2-3.4)
Neutrophils % 75.3 H %
(42.2-75.2)
Lymphocytes % 13.1 L %
(20.5-51.1)
Monocytes % 11.2 H %
(1.7-9.3)
Glucose 101 H mg/dl
(70-99)
ALT 42 H U/L
(0-35)
04/28/24 10:10
04/28/24 10:10
Vital Signs
Initial and Last Documented VS:
Initial Vital Signs
Temp Pulse Resp BP Pulse Ox
99.0 F 97 20 124/81 98
04/28/24 09:25 04/28/24 09:25 04/28/24 09:25 04/28/24 09:25 04/28/24 09:25
Last Documented Vital Signs
Temp Pulse Resp BP Pulse Ox
99.0 F 80 18 101/60 98
04/28/24 09:25 04/28/24 11:53 04/28/24 11:53 04/28/24 11:53 04/28/24 11:53
*Radiology
Radiology exam reviewed: radiology read reviewed
*Pulse Oximetry
Patient hypoxic: no
*EKG
Interpreted by ED Provider?: NA
*Numerical Analysis Group Manager Interpretation
Rate: Numerical Analysis Group Manager- N/A
*Critical Care Note
Total Time (30-74mins, 75-104mins- exclusive of procedures): Not Applicable
Update Note
Update Note:
Patient's lab workup and ultrasound are unremarkable. Patient does feel better after Protonix and Carafate. Patient may need a upper endoscopy. Patient will be referred to GI. In addition we will have the patient avoid gluten. Patiently placed
on Carafate and Protonix.
ED Attending Note
-
Portions of this chart may have been created with voice recognition software.� Occasional wrong word or��sound alike� substitutions may have occurred due to the inherent limitations of voice recognition software.
Discharge Plan
Departure
Patient Disposition: Home (Routine Discharge)
Date of Disposition: 04/28/24
Time of Disposition: 13:37
Patient with high blood pressure during this ER visit?: No
Condition: Fair
Covid-19: Not Applicable
Discharge Problem:
Pain, abdominal, nonspecific
Instructions: Gastritis (DC), Gluten-free diet, Abdominal Pain
Prescriptions:
New
sucralfate [Carafate] 1 gram tablet
1 g PO QID Qty: 80 0RF
ketorolac 10 mg tablet
10 mg PO QID PRN (Reason: pain) 5 Days Qty: 20 0RF
pantoprazole [Protonix] 40 mg tablet,delayed release (DR/EC)
40 mg PO BID Qty: 60 0RF
No Action
spironolactone 25 mg Tablet
75 mg PO DAILY
Patient Comments:
02/20/2024: Pharmacy closed at time of interview, med not on Dr First or [facility].
ascorbic acid (vitamin C) [Vitamin C] 500 mg Tablet
500 mg PO HS
fluoxetine 10 mg capsule
10 mg PO DAILY
Patient Comments:
02/20/2024: taken w/ 20mg = 30mg
fluoxetine 20 mg capsule
20 mg PO DAILY
Patient Comments:
02/20/2024: taken w/ 10mg = 30mg
dicyclomine 10 mg Capsule
10 mg PO QID PRN (Reason: abdominal cramps)
cholecalciferol (vitamin D3) [Vitamin D3] 25 mcg (1,000 unit) Tablet
50 mcg PO HS
Probiotic 20 billion cell Capsule
50,000 mmu cells PO HS
Serenol 500 mcg-12 mg- 312 mg Tablet
1 tab PO HS
ashwagandha extract 120 mg Capsule
120 mg PO HS
magnesium oxide 300 mg magnesium Tablet
300 mg PO HS
tramadol 50 mg tablet
50 mg PO Q8H PRN (Reason: Pain) Qty: 14 0RF
ondansetron 4 mg Tablet,Disintegrating
4 mg PO TIDPRN PRN (Reason: nausea/vomiting) Qty: 8 0RF
amoxicillin-pot clavulanate 875-125 mg tablet
1 tab PO BID Qty: 14 0RF
oxycodone 5 mg tablet
5 mg PO BID PRN (Reason: Pain) Qty: 7 0RF
Referrals:
Cecile Soto CRNP [Family Provider] -
Interventions
Interventions:
*Risk Screen - Suicide Last Done: 04/28/24 09:25
*General Assessment Last Done: 04/28/24 09:25
*Neglect/Abuse Screening Last Done: 04/28/24 09:25
JY-Buzaru-Fdumoivvhb Assessment Last Done: 04/28/24 10:15
Discharge Date and Time
Print Language: CONGOLESE
[2024-04-28] MEDS: TORADOL 15 MG IV ×2 (10:06→12:30)
[2024-04-28] MEDS: ZOFRAN 4 MG IV (10:06)
[2024-04-28] MEDS: NSS 1000 IV (10:07)
[2024-04-28 10:29] LABS: % Basophils 0.2 % (0-2); % Immature Granulocytes 0.2 % (0-0.5); % Lymphocytes 13.1 % (20.5-51.1); % Monocytes 11.2 % (1.7-9.3); % Neutrophils 75.3 % (42.2-75.2); Absolute Lymphocytes 0.7 10^3/uL (1.2-3.4); Absolute Monocytes 0.6 10^3/uL (0.1-0.6); Absolute Neutrophils 4.3 10^3/uL (1.4-6.5); Hematocrit 42.1 % (37.0-47.0); Hemoglobin 14.5 g/dL (12.0-16.0); Mean Corp Hgb Conc. 34.4 g/dL (33.0-37.0); Mean Corpuscular Hgb 29.1 pg (27.0-31.0); Mean Corpuscular Volume 84.5 fL (81.0-99.0); Mean Platelet Volume 9.6 fL (7.4-10.4); Nucleated Red Blood Cells % 0 %; Platelet Count 138 10^3/uL (130-400); Red Blood Cell Count 4.98 10^6/uL (4.20-5.40); Red Cell Dist. Width 12.2 % (11.5-14.5); White Blood Cell Count 5.7 10^3/uL (4.8-10.8)
[2024-04-28 10:32] LABS: ALT (SGPT) 42 U/L (0-35); AST (SGOT) 36 U/L (14-36); Albumin 3.6 g/dl (3.5-5.0); Alkaline Phosphatase 54 U/L (38-126); Blood Urea Nitrogen 15 mg/dl (7-17); Calcium 8.5 mg/dl (8.4-10.2); Carbon Dioxide 25 mmol/L (22-30); Chloride 103 mmol/L (98-107); Glucose 101 mg/dl (70-99); Sodium 135 mmol/L (135-145); Total Bilirubin 0.5 mg/dl (0.2-1.3); Total Protein 6.4 g/dl (6.3-8.2); eGFR > 60.00
[2024-04-28 11:53] VITALS: BP 101/60
[2024-04-28] MEDS: PROTONIX IV 80 MG IV (12:30)
[2024-04-28] MEDS: CARAFATE 1 GRAM PO (12:30)
[2024-04-28 12:55] LABS: Urine Albumin Negative (Neg - Trace); Urine Bilirubin Negative (Negative); Urine Character Clear (Clear); Urine Color Yellow; Urine Glucose Negative (Negative); Urine Ketone Negative (Negative); Urine Leukocyte Negative (Negative); Urine Nitrite Negative (Negative); Urine Occult Blood Negative (Negative); Urine Specific Gravity 1.015 (<1.030); Urine Urobilinogen Negative (Neg - 1+); Urine pH 6.5 (5.0-9.0)
== END 2024-04-28 14:00 | disposition home or self-care (01) ==
LOC: EMR 09:22
PROVIDERS: EMERGENCY PHYSICIAN Emergency Medicine; FAMILY PHYSICIAN Nurse Practitioner
DX: R10.9 Unspecified abdominal pain (principal)
CPT/HCPCS: 99285; 96374; 96375 ×2; 96361 ×2; 96376; 76700; 80053; 81003; 85025

== ENCOUNTER → 2024-05-11 11:59 | Outpatient (REF) | payer OTHER, SELFPAY | LOC: MRI 3T 11:59 | PROVIDERS: ATTENDING PHYSICIAN Obstetrics & Gynecology; PRIMARYCARE PHYSICIAN Nurse Practitioner | DX: R93.89 Abnormal findings on diagnostic imaging of other specified body structures (principal) | CPT/HCPCS: 72197; A9575 ==

== ENCOUNTER → 2024-05-19 06:32 | Day surgery (SDC) | payer OTHER, SELFPAY | LOC: GI 06:32 | PROVIDERS: ATTENDING PHYSICIAN Internal Medicine | DX: K92.1 Melena (principal); K64.8 Other hemorrhoids; R10.13 Epigastric pain; R11.2 Nausea with vomiting, unspecified; J38.7 Other diseases of larynx; K29.50 Unspecified chronic gastritis without bleeding; K31.89 Other diseases of stomach and duodenum | CPT/HCPCS: 45378; 43239; 88305; 88342 ==

== ENCOUNTER → 2024-07-17 10:44 | Outpatient (REF) | payer OTHER, SELFPAY | LOC: HWRAD 10:44 | PROVIDERS: ATTENDING PHYSICIAN Obstetrics & Gynecology Gynecology; FAMILY PHYSICIAN Nurse Practitioner | DX: R10.2 Pelvic and perineal pain (principal) | CPT/HCPCS: 76830; 76856 ==

== ENCOUNTER → 2024-09-01 15:39 | Outpatient (REF) | payer OTHER, SELFPAY | LOC: PAVMRI 15:39 | PROVIDERS: ATTENDING PHYSICIAN Pain Medicine Interventional Pain Medicine; FAMILY PHYSICIAN Nurse Practitioner | DX: M54.16 Radiculopathy, lumbar region (principal) | CPT/HCPCS: 72148 ==

== ENCOUNTER 2025-02-05 13:06 | Outpatient (RCR) | payer OTHER, SELFPAY | END 2025-02-05 23:59 | disposition home or self-care (01) | LOC: RPT 13:06 | PROVIDERS: ATTENDING PHYSICIAN Orthopaedic Surgery Orthopaedic Surgery of the Spine; FAMILY PHYSICIAN Nurse Practitioner | DX: Z47.89 Encounter for other orthopedic aftercare (principal); M51.27 Other intervertebral disc displacement, lumbosacral region; Z73.6 Limitation of activities due to disability; M62.81 Muscle weakness (generalized) | CPT/HCPCS: 97010; 97110; 97112; 97140; 97161 ==

== ENCOUNTER → 2025-02-08 14:40 | Outpatient (REF) | payer OTHER, SELFPAY | LOC: HWRAD 14:40 | PROVIDERS: ATTENDING PHYSICIAN Nurse Practitioner | DX: E01.0 Iodine-deficiency related diffuse (endemic) goiter (principal) | CPT/HCPCS: 76536 ==

== ENCOUNTER 2025-03-04 16:28 | Outpatient (RCR) | payer OTHER, SELFPAY | END 2025-03-04 23:59 | disposition home or self-care (01) | LOC: RPT 16:28 | PROVIDERS: ATTENDING PHYSICIAN Orthopaedic Surgery Orthopaedic Surgery of the Spine; FAMILY PHYSICIAN Nurse Practitioner | DX: Z47.89 Encounter for other orthopedic aftercare (principal); M51.27 Other intervertebral disc displacement, lumbosacral region; M62.81 Muscle weakness (generalized); Z73.6 Limitation of activities due to disability | CPT/HCPCS: 97010; 97110; 97112; 97140 ==

== ENCOUNTER 2025-04-08 17:06 | Outpatient (RCR) | payer BC, SELFPAY | END 2025-04-08 23:59 | disposition home or self-care (01) | LOC: RPT 17:06 | PROVIDERS: ATTENDING PHYSICIAN Orthopaedic Surgery Orthopaedic Surgery of the Spine; FAMILY PHYSICIAN Nurse Practitioner | DX: Z47.89 Encounter for other orthopedic aftercare (principal); M51.27 Other intervertebral disc displacement, lumbosacral region; M62.81 Muscle weakness (generalized); Z73.6 Limitation of activities due to disability | CPT/HCPCS: 97010; 97110; 97112; 97116; 97140; 97161 ==

== ENCOUNTER 2025-05-07 08:38 | Outpatient (RCR) | payer BC, SELFPAY | END 2025-05-07 23:59 | disposition home or self-care (01) | LOC: RPT 08:38 | PROVIDERS: ATTENDING PHYSICIAN Orthopaedic Surgery Orthopaedic Surgery of the Spine; FAMILY PHYSICIAN Nurse Practitioner | DX: Z47.89 Encounter for other orthopedic aftercare (principal); M51.27 Other intervertebral disc displacement, lumbosacral region; M62.81 Muscle weakness (generalized); Z73.6 Limitation of activities due to disability | CPT/HCPCS: 97110; 97112 ==

== ENCOUNTER 2025-06-01 16:55 | Outpatient (RCR) | payer BC, SELFPAY | END 2025-06-01 23:59 | disposition home or self-care (01) | LOC: RPT 16:55 | PROVIDERS: ATTENDING PHYSICIAN Orthopaedic Surgery Orthopaedic Surgery of the Spine; FAMILY PHYSICIAN Nurse Practitioner | DX: Z47.89 Encounter for other orthopedic aftercare (principal); M51.27 Other intervertebral disc displacement, lumbosacral region; Z73.6 Limitation of activities due to disability; M62.81 Muscle weakness (generalized) | CPT/HCPCS: 97110; 97112; 97530 ==

== ENCOUNTER → 2025-07-31 07:34 | Outpatient (REF) | payer BC, SELFPAY | LOC: MRI 3T 07:34 | PROVIDERS: ATTENDING PHYSICIAN Podiatrist; FAMILY PHYSICIAN Nurse Practitioner | DX: M65.871 Other synovitis and tenosynovitis, right ankle and foot (principal) | CPT/HCPCS: 73718 ==

== ENCOUNTER → 2025-08-03 19:31 | Outpatient (REF) | payer BC, SELFPAY | LOC: MRI 3T 19:31 | PROVIDERS: ATTENDING PHYSICIAN Orthopaedic Surgery Orthopaedic Surgery of the Spine; FAMILY PHYSICIAN Nurse Practitioner | DX: M48.062 Spinal stenosis, lumbar region with neurogenic claudication (principal) | CPT/HCPCS: 72158; A9575 ==